=== PATIENT | female | born 1940 | race Caucasian/White ===

== ENCOUNTER 2022-09-07 10:23 | Emergency (ER) | payer MEDICARE ==
[2022-09-07] VITALS (8 sets, daily range): BP systolic 125–149; BP diastolic 51–82
[~2022-09-07] VITALS: Ht 165.1 cm; Wt 66.0 kg
[2022-09-07] MEDS ORDERED: LEVOTHYROXIN75 MCG PO (11:14)
[2022-09-07] MEDS ORDERED: FLOVENT HFA44 MC1 (11:15)
[2022-09-07] MEDS ORDERED: MATZIM LA240 MG (11:15)
[2022-09-07] MEDS ORDERED: FLECAINIDE50 MG PO (11:16)
[2022-09-07] MEDS ORDERED: LATANOPROST0.005 % (11:17)
[2022-09-07] MEDS ORDERED: WARFARIN SODIUM1 MG PO (11:17)
[2022-09-07] MEDS ORDERED: CALCIUM600 M1 PO (11:18)
[2022-09-07] MEDS ORDERED: MULTIVITAMI9 PO (11:18)
[2022-09-07] MEDS ORDERED: PRESERVISION AREDS 2 (11:19)
[2022-09-07] MEDS ORDERED: VITAMIN D5000 UNIT (11:19)
[2022-09-07] MEDS ORDERED: QC FOLIC ACID800 MCG (11:20)
[2022-09-07] MEDS ORDERED: ZYRTEC10 M5 PO (11:20)
[2022-09-07] MEDS ORDERED: XGEVA SC (11:21)
[2022-09-07 12:22] LABS: BASO% 0.4 % (0-3); EOS% 0.5 % (0-8); HEMATOCRIT 37.4 % (37.0-47.0); IMMATURE GRANULOCYTES 0.1 % (0.0-5.0); LYMPH% 15.6 % (15-41); MEAN CELL VOLUME 86.2 fL CALC (80.0-100.0); MEAN CORPUSCULAR HGB CONC 34.8 g/dL CAL (32.0-36.0); MONO% 11.7 % (2-13); NEUT# 5.25 thou/uL (2.00-7.15); NEUT% 71.7 % (42-76); RED BLOOD COUNT 4.34 mill/uL (4.20-5.60); RED CELL DISTRI WIDTH 13.9 % (11.5-15.5)
[2022-09-07 12:28] LABS: ALBUMIN 4.4 g/dL (3.2-5.0); ALKALINE PHOSPHATASE 105 u/l (38-126); ANION GAP 10 (6-22 (CALC)); BILIRUBIN, TOTAL 0.2 mg/dL (0.0-1.4); BUN 11 mg/dL (8-23); BUN/CREATININE RATIO 15 (12-20 (CALC)); CARBON DIOXIDE 28 mmol/l (22-30); CHLORIDE 94 mmol/l (95-108); CREATININE 0.8 mg/dL (0.5-1.0); GFR FOR AFR.AMER. > 60 ML/MIN (>=60 (CALC)); GFR OTHER RACES > 60 ML/MIN (>=60 (CALC)); POTASSIUM 4.3 mmol/l (3.5-5.1); SGOT/AST 33 u/l (9-36); SODIUM 128 mmol/l (137-146); TOTAL PROTEIN 7.8 g/dL (6.3-8.2)
[2022-09-07] MEDS ORDERED: PREDNISONE50 MG PO (12:47)
[2022-09-07] MEDS ORDERED: ZPAK PO (12:47)
[2022-09-07] MEDS ORDERED: PROVENTIL HFA IN (12:47)
== END 2022-09-07 13:00 | disposition home or self-care (01) ==
LOC: ED 10:23
PROVIDERS: Family Medicine
DX: J06.9 Acute upper respiratory infection, unspecified (principal); I10 Essential (primary) hypertension; Z20.822 Contact with and (suspected) exposure to COVID-19